=== PATIENT | male | born 1945 | race Caucasian/White ===

== ENCOUNTER → 2019-08-11 10:35 | Outpatient (BNVA) | payer MEDICARE, MEDICAID, SELFPAY | PROVIDERS: Family Provider Family Medicine; Visit Provider Nurse Practitioner | DX: F20.89 Other schizophrenia (principal); F17.210 Nicotine dependence, cigarettes, uncomplicated | CPT/HCPCS: 99214; 99215 ==

== ENCOUNTER → 2019-11-03 07:37 | Outpatient (BNVA) | payer MEDICARE, MEDICAID, SELFPAY | PROVIDERS: Family Provider Family Medicine; Visit Provider Nurse Practitioner | DX: F20.89 Other schizophrenia (principal) | CPT/HCPCS: 99213 ==

== ENCOUNTER → 2020-02-17 07:56 | Outpatient (BNVA) | payer MEDICARE, MEDICAID, SELFPAY | PROVIDERS: Family Provider Family Medicine; Visit Provider Nurse Practitioner | DX: F20.89 Other schizophrenia (principal); Z79.899 Other long term (current) drug therapy; F90.2 Attention-deficit hyperactivity disorder, combined type | CPT/HCPCS: 99214 ==

== ENCOUNTER → 2020-06-12 08:16 | Outpatient (BNVA) | payer MEDICARE, MEDICAID, SELFPAY | PROVIDERS: Family Provider Family Medicine; Visit Provider Nurse Practitioner | DX: F20.89 Other schizophrenia (principal) | CPT/HCPCS: 99213 ==

== ENCOUNTER → 2020-09-04 08:06 | Outpatient (BNVA) | payer MEDICARE, MEDICAID, SELFPAY | PROVIDERS: Family Provider Family Medicine; Visit Provider Nurse Practitioner | DX: F32.5 Major depressive disorder, single episode, in full remission (principal); F20.89 Other schizophrenia | CPT/HCPCS: 99214 ==

== ENCOUNTER → 2021-01-18 08:45 | Outpatient (BNVA) | payer MEDICARE, MEDICAID, SELFPAY | PROVIDERS: Family Provider Family Medicine; Visit Provider Nurse Practitioner | DX: F32.5 Major depressive disorder, single episode, in full remission (principal); F20.89 Other schizophrenia | CPT/HCPCS: 99214 ==

== ENCOUNTER → 2021-07-10 08:26 | Outpatient (BNVA) | payer MEDICARE, MEDICAID, SELFPAY | PROVIDERS: Family Provider Family Medicine; Visit Provider Nurse Practitioner | DX: F32.5 Major depressive disorder, single episode, in full remission (principal); F20.89 Other schizophrenia | CPT/HCPCS: 99214 ==

== ENCOUNTER → 2021-10-24 10:49 | Outpatient (BNVA) | payer MEDICARE, MEDICAID, SELFPAY | PROVIDERS: Family Provider Family Medicine; Visit Provider Nurse Practitioner | DX: F32.5 Major depressive disorder, single episode, in full remission (principal); F20.89 Other schizophrenia; Z79.899 Other long term (current) drug therapy | CPT/HCPCS: 99214 ==

== ENCOUNTER → 2022-12-16 11:25 | Outpatient (BNVA) | payer MEDICARE, MEDICAID, OTHER, SELFPAY | PROVIDERS: Family Provider Family Medicine; Visit Provider Nurse Practitioner | DX: Z79.899 Other long term (current) drug therapy (principal); F32.5 Major depressive disorder, single episode, in full remission; F20.89 Other schizophrenia; G25.9 Extrapyramidal and movement disorder, unspecified | CPT/HCPCS: 80061; 83036 ==

== ENCOUNTER → 2024-01-02 14:57 | Outpatient (BNVA) | payer MEDICARE, MEDICAID, OTHER, SELFPAY | PROVIDERS: Family Provider Family Medicine; Visit Provider Nurse Practitioner | DX: Z79.899 Other long term (current) drug therapy (principal); F20.89 Other schizophrenia; F32.5 Major depressive disorder, single episode, in full remission | CPT/HCPCS: 80061; 83036 ==

== ENCOUNTER 2024-12-16 09:47 | Outpatient (CLI) | payer MEDICARE, MEDICAID, SELFPAY ==
--- NOTE | 2024-12-16 09:49 | XR_ITS ---
WS: [id number] Exam: XR chest 2V* [id number] Date/Time of Exam: 12/16/2024 9:51 AM Reason For Exam: Low oxygen Comparison 08/14/2018. The lungs are fully expanded and clear. Parts of the RIGHT and LEFT upper lobes are obscured. Bony structures are intact. Cardiomediastinal silhouette is unremarkable as visualized. No pleural effusions. XR/XR chest 2V* [id number] IMPRESSION: 1. No acute cardiopulmonary finding.
== END 2024-12-16 09:48 | disposition home or self-care (01) ==
LOC: RAD 09:49
PROVIDERS: Family Provider Family Medicine; PCP Family Medicine; Visit Provider Family Medicine
DX: R09.02 Hypoxemia (principal); R05.9 Cough, unspecified; Z79.899 Other long term (current) drug therapy
CPT/HCPCS: 71046; 80053; 80061; 83036